=== PATIENT | male | born 1985 | race African-American/Black ===

== ENCOUNTER → 2020-01-23 | Outpatient (CLI) | payer OTHER | LOC: LABNPT 16:47 | PROVIDERS: ATTEND Nurse Practitioner Family | DX: Z20.828 Contact with and (suspected) exposure to other viral communicable diseases (principal) | CPT/HCPCS: 87635 ==

== ENCOUNTER → 2021-06-11 | Emergency (ER) | payer OTHER | LOC: EDUNIT# 04:23 → ER 04:24 | DX: R50.9 Fever, unspecified (principal) ==